=== PATIENT | male | born 1980 | race Two or more races ===

== ENCOUNTER 2019-09-10 14:19 | Outpatient (CLI) | payer OTHER | END 2019-09-10 17:35 | disposition home or self-care (01) | LOC: OFIC 805 14:19 | PROVIDERS: ATTEND Otolaryngology | DX: H66.91 Otitis media, unspecified, right ear (principal); H90.11 Conductive hearing loss, unilateral, right ear, with unrestricted hearing on the contralateral side; H61.21 Impacted cerumen, right ear; H74.11 Adhesive right middle ear disease ==